=== PATIENT | female | born 1975 | race American Indian/Alaskan Native ===

== ENCOUNTER 2016-10-21 14:10 | Outpatient (CLI) | payer BC ==
--- NOTE | 2016-10-22 13:38 | Mammography Report ---
BILATERAL DIGITAL SCREENING MAMMOGRAM with CAD: 10/21/16 14:10:00 CLINICAL: Baseline screening. FINDINGS: The breasts are heterogeneously dense, which may obscure small masses and limit the sensitivity of mammography. Left asymmetries require additional imaging.No architectural distortion or suspicious calcifications.The right breast is negative. IMPRESSION: Left asymmetries requiring further workup. BI-RADS CATEGORY: 0 -- Additional Imaging Evaluation Required RECOMMENDATION: Recall for left exaggerated CC, LM , spot compression CC and MLO views and left breast ultrasound if needed. ACR BI-RADS MAMMOGRAPHIC CODES: 0 = Needs additional imaging evaluation; 1 = Negative; 2 = Benign; 3 = Probably benign; 4 = Suspicious; 5 = Malignant; 6 = Known biopsy-proven malignancy COMMENT: 1. Dense breast tissue, i.e., adenosis, fibrocystic changes, etc., may obscure an underlying neoplasm. 2. Approximately 10% of cancers are not detected with mammography. 3. A negative mammography report should not delay biopsy if a clinically suspicious mass is present. COMMENT: Patient follow-up letters are generated via our [employer] application.
== END 2016-10-21 14:11 | disposition home or self-care (01) ==
LOC: SPVWC 14:10
PROVIDERS: ATTEND Family Medicine
DX: Z12.31 Encounter for screening mammogram for malignant neoplasm of breast (principal)
CPT/HCPCS: 77067; G0202

== ENCOUNTER 2016-11-06 12:59 | Outpatient (CLI) | payer BC ==
--- NOTE | 2016-11-06 13:41 | Mammography Report ---
Spot compression magnification of the asymmetry is left breast: Findings: There is complete effacement noted of the asymmetry is right and left breast and spot magnification views. No mass or microcalcification seen in the region. Impression: Benign findings. Annual followup with mammogram recommended. BI-RADS CATEGORY: 2 = Benign ACR BI-RADS MAMMOGRAPHIC CODES: 0 = Needs additional imaging evaluation; 1 = Negative; 2 = Benign; 3 = Probably benign; 4 = Suspicious; 5 = Malignant; 6 = Known biopsy-proven malignancy COMMENT: 1. Dense breast tissue, i.e., adenosis, fibrocystic changes, etc., may obscure an underlying neoplasm. 2. Approximately 10% of cancers are not detected with mammography. 3. A negative mammography report should not delay biopsy if a clinically suspicious mass is present.
== END 2016-11-06 13:00 | disposition home or self-care (01) ==
LOC: MAMMO 12:59
PROVIDERS: ATTEND Family Medicine
DX: R92.8 Other abnormal and inconclusive findings on diagnostic imaging of breast (principal)
CPT/HCPCS: G0206-LT